=== PATIENT | female | born 1965 | race Hispanic/Latino ===

== ENCOUNTER 2016-09-13 16:09 | Emergency (ER) | payer MEDICARE ==
[2016-09-13 18:28] VITALS: BP 133/89
[2016-09-13] MEDS ORDERED: VALIUM PO ONE (20:29)
[2016-09-13] MEDS ORDERED: TORADOL IM ONE (20:29)
--- NOTE | 2016-09-13 20:31 | Emergency Department Report ---
HPI - General Chief Complaint: Back Pain/Injury Time Seen by Provider: 09/13/16 20:17 - HPI HPI: Physical [id number] female presents today with lower back pain and bilateral calf pain or slipping and falling last night. Patient states that she landed on her butt. Denies head injury or loss of consciousness. Positive for pain worsening today. Positive for history of sciatica. Denies numbness, weakness, paresthesias. Denies bowel or bladder incontinence. Describes her pain as 10 out of 10 constant, throbbing ache that is worse with movement. Tried Tylenol 3 without relief. Denies fever, chills, nausea, vomiting, chest pain, shortness of breath, abdominal pain, urinary symptoms. ED Past Medical Hx - Past Medical History Hx Psychiatric Treatment: Yes (BIPOLAR, ANXIETY, ADHD) Additional medical history: Degenerative disc disease lumbar spine, sciatica, ' bulging discs' - Surgical History Hx Appendectomy: Yes Additional Surgical History: x3 - Social History Smoking Status: Never Smoker Substance Use Type: None - Medications Home Medications: Home Medications Medication Instructions Recorded Confirmed Last Taken Type Dextroamphetamine/Amphetamine 20 mg PO BID #60 tab 12/20/14 Unknown Rx [Adderall] Diazepam 10 mg PO BID #60 tablet 12/20/14 Unknown Rx buPROPion XL [Wellbutrin XL] 150 mg PO QAM 12/20/14 12/20/14 12/17/14 History risperiDONE [RisperiDONE] 3 mg PO BID #60 tablet 12/20/14 Unknown Rx Carisoprodol [Soma] 350 mg PO Q8H PRN #21 tablet 06/18/15 Unknown Rx oxyCODONE /ACETAMINOPHEN [Percocet 1 tab PO Q6HR PRN #20 tablet 06/18/15 Unknown Rx 5/325] Cyclobenzaprine [Flexeril] 10 mg PO TID PRN #15 tablet 01/02/16 Unknown Rx Ivette Osei [Nabeel Osei] 75 mg PO BID #20 tablet 01/02/16 Unknown Rx Diclofenac Sodium 75 mg PO BID #20 tablet. 05/06/16 Unknown Rx HYDROcodone/APAP 10-325 [[place] 1 each PO Q6HR PRN #10 tablet 05/06/16 Unknown Rx 10/325] Permethrin [Elimite] 60 gm TP ONCE #1 tube 05/06/16 Unknown Rx Cyclobenzaprine [Flexeril] 10 mg PO TID PRN #15 tablet 05/24/16 Unknown Rx Diclofenac Sodium [Diclofenac 100 mg PO BID #20 tab.er.24h 05/24/16 Unknown Rx Sodium ER] Acetaminophen/Codeine 1 tab PO Q6H PRN #14 tab 08/02/16 Unknown Rx [Acetaminophen-Codeine #3 TAB] methOCARBAMOL [Robaxin TAB] 500 mg PO Q6H PRN #14 tablet 08/02/16 Unknown Rx Acetaminophen/Codeine 1 tab PO Q6H PRN #10 tab 09/13/16 Unknown Rx [Acetaminophen-Codeine #3 TAB] ED Review of Systems ROS: Stated complaint: FELL/BACK PAIN Other details as noted in HPI Constitutional: denies: chills, fever, malaise Eyes: denies: eye pain ENT: denies: ear pain, throat pain, congestion Respiratory: denies: cough, shortness of breath, wheezing Cardiovascular: denies: chest pain, palpitations Endocrine: no symptoms reported Gastrointestinal: denies: abdominal pain, nausea, vomiting Genitourinary: denies: urgency, dysuria, frequency, hematuria, discharge Musculoskeletal: back pain Neurological: denies: headache, weakness, numbness, paresthesias Physical Exam - Physical Exam Vital Signs: Vital Signs 09/13/16 18:24 Temperature 97.8 F Pulse Rate 91 H Respiratory 19 Rate Blood Pressure 133/89 O2 Sat by Pulse 100 Oximetry Physical Exam: GENERAL: The patient is well-developed and well-nourished. Patient is in NAD. HEAD: Normocephalic. Atraumatic. CHEST/LUNGS: Clear to auscultation throughout. HEART/CARDIOVASCULAR: Regular rate and rhythm. No murmurs, rubs or gallops. ABDOMEN: Abdomen is soft, nontender. Bowel sounds normoactive. No guarding or rebound tenderness. EXTREMITIES: Full range of motion. Peripheral pulses intact. Capillary refill less than 2 seconds. No calf tenderness to palpation over edema noted. BACK: Full ROM. No midline or paraspinal tenderness to palpation. Negative for tenderness to palpation of sciatic notch bilaterally. Negative straight leg raise bilaterally. NEURO: Alert and oriented x 3. Normal gait. ED Course Vital Signs 09/13/16 18:24 Temperature 97.8 F Pulse Rate 91 H Respiratory 19 Rate Blood Pressure 133/89 O2 Sat by Pulse 100 Oximetry ED Medical Decision Making - Lab Data Vital Signs 09/13/16 09/13/16 18:24 21:42 Temperature 97.8 F Pulse Rate 91 H Respiratory 19 18 Rate Blood Pressure 133/89 O2 Sat by Pulse 100 Oximetry - Medical Decision Making 51-year-old female presents today with acute onset of chronic lower back pain post fall. The patient was given Toradol and reported some symptomatic relief. Patient is requesting Percocets, explained to patient that I am unable to prescribe her narcotics for chronic pain and she needs to follow up with pain management. The patient expressed understanding. Patient denies Toradol, Flexeril and tramadol to go home on. Patient is in no acute distress at this time. She will be discharged home and is encouraged to follow up with a primary care provider. She will be sent home on Tylenol 3 and is encouraged to return to the emergency room for any worsening symptoms. Critical care attestation.: If time is entered above; I have spent that time in minutes in the direct care of this critically ill patient, excluding procedure time. ED Disposition Clinical Impression: Low back pain Qualifiers: Chronicity: chronic Back pain laterality: bilateral Sciatica presence: without sciatica Qualified Code(s): M54.5 - Low back pain; G89.29 - Other chronic pain Disposition: DISCHARGED TO HOME OR SELFCARE Is pt being admited?: No Does the pt Need Aspirin: No Condition: Stable Instructions: Chronic Back Pain (ED) Additional Instructions: Follow-up with primary care provider. Return to the emergency department if symptoms worsen. Prescriptions: Acetaminophen/Codeine [Acetaminophen-Codeine #3 TAB] 1 tab PO Q6H PRN #10 tab PRN Reason: Pain Referrals: DELIA PAGAN JR, MD [Primary Care Provider] - 3-5 Days [facility] [Provider Group] - 3-5 Days Forms: Work/School Release Form Time of Disposition: 22:06
== END 2016-09-13 22:48 | disposition home or self-care (01) ==
LOC: ED 16:09
DX: M54.5 Low back pain (principal); G89.29 Other chronic pain; F20.9 Schizophrenia, unspecified; Z90.49 Acquired absence of other specified parts of digestive tract
CPT/HCPCS: 96372; 99282; J1885

== ENCOUNTER 2018-12-26 10:02 | Emergency (ER) | payer MEDICARE ==
--- NOTE | 2018-12-26 10:50 | Emergency Department Report ---
ED Psych HPI - General Chief Complaint: Psych Stated Complaint: FRACTURED PELVIC/DEPRESSION/ANXIETY Time Seen by Provider: 12/26/18 10:27 Source: patient Mode of arrival: Ambulatory - History of Present Illness Initial Comments: 53-year-old female with history of ADHD, anxiety, bipolar disorder presents to ED for anxiety. Patient states she stopped taking her anxiety medication and ADHD medication approximately one month ago because her family said that she was taken to much medication. Patient has prescription for her anxiety and ADHD medication with her, however has not gotten it filled. The patient presents to the ED because she states she is anxious and depressed. MD Complaint: feels depressed, other (anxiety) Associated Psychiatric Symptoms: depression History of same: Yes Quality: constant Improves With: medication Worsens With: none Context: not taking psychiatric Associated Symptoms: denies other symptoms Treatments Prior to Arrival: none - Related Data Home Medications Medication Instructions Recorded Confirmed Last Taken ALPRAZolam [Xanax TAB] 2 mg PO TID 12/26/18 12/26/18 Unknown Quetiapine Fumarate [SEROquel] 300 mg PO QHS 12/26/18 12/26/18 Unknown buPROPion [Wellbutrin] 200 mg PO DAILY 12/26/18 12/26/18 Unknown Allergies Allergy/AdvReac Type Severity Reaction Status Date / Time No Known Allergies Allergy Verified 12/26/18 10:04 ED Review of Systems ROS: Stated complaint: FRACTURED PELVIC/DEPRESSION/ANXIETY Other details as noted in HPI Comment: All other systems reviewed and negative Psychiatric: anxiety, depression ED Past Medical Hx - Past Medical History Hx Psychiatric Treatment: Yes (BIPOLAR, ANXIETY, ADHD) Additional medical history: Degenerative disc disease lumbar spine, sciatica, 'bulging discs' - Surgical History Hx Appendectomy: Yes Additional Surgical History: x3 - Social History Smoking Status: Never Smoker Substance Use Type: None - Medications Home Medications: Home Medications Medication Instructions Recorded Confirmed Last Taken Type ALPRAZolam [Xanax TAB] 2 mg PO TID 12/26/18 12/26/18 Unknown History Quetiapine Fumarate [SEROquel] 300 mg PO QHS 12/26/18 12/26/18 Unknown History buPROPion [Wellbutrin] 200 mg PO DAILY 12/26/18 12/26/18 Unknown History ED Physical Exam - General Limitations: No Limitations General appearance: alert, in no apparent distress - Head Head exam: Present: atraumatic, normocephalic - Eye Eye exam: Present: normal appearance - ENT ENT exam: Present: mucous membranes moist - Neck Neck exam: Present: normal inspection - Respiratory Respiratory exam: Present: normal lung sounds bilaterally. Absent: respiratory distress - Cardiovascular Cardiovascular Exam: Present: regular rate, normal rhythm - GI/Abdominal GI/Abdominal exam: Absent: distended - Extremities Exam Extremities exam: Present: normal inspection - Neurological Exam Neurological exam: Present: alert, oriented X3 - Psychiatric Psychiatric exam: Present: normal affect, normal mood - Skin Skin exam: Present: warm, dry, intact, normal color ED Course Vital Signs 12/26/18 12/26/18 12/26/18 10:09 13:46 17:23 Temperature 98.5 F 97.6 F Pulse Rate 82 67 Respiratory 16 17 18 Rate Blood Pressure 135/89 Blood Pressure 119/80 [Left] O2 Sat by Pulse 98 97 97 Oximetry - Reevaluation(s) Reevaluation #1: 12/26/18 18:35 Pt accepted to the [facility] unit ED Medical Decision Making - Lab Data Result diagrams: 12/26/18 13:09 12/26/18 13:09 - Medical Decision Making 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 Pt placed on 1013. UTI on UA. Bactrim given. Medically clear for psychiatric evaluation. - Differential Diagnosis anxiety, suicidal ideations Critical care attestation.: If time is entered above; I have spent that time in minutes in the direct care of this critically ill patient, excluding procedure time. ED Disposition Clinical Impression: Suicidal ideation, Medical clearance for psychiatric admission Disposition: [id number] HOSP/PSY UNIT Is pt being admited?: No Condition: Stable Referrals: PRIMARY CARE, [Referring] - 3-5 Days Time of Disposition: 17:49
[2018-12-26 13:29] LABS: Basophils # (Auto) 0.1 K/mm3 (0.0-0.1); Basophils % (Auto) 1.4 % (0.0-1.8); Eosinophils # (Auto) 0.3 K/mm3 (0.0-0.4); Eosinophils % (Auto) 4.3 % (0.0-4.3); Hematocrit 39.4 % (30.3-42.9); Hemoglobin 13.6 gm/dl (10.1-14.3); Lymphocytes # (Auto) 2.4 K/mm3 (1.2-5.4); Lymphocytes % (Auto) 41.1 % (13.4-35.0); Mean Corpuscular HGB Conc 35 % (30-34); Mean Corpuscular Volume 84 fl (79-97); Monocytes # (Auto) 0.4 K/mm3 (0.0-0.8); Monocytes % (Auto) 6.5 % (0.0-7.3); Platelet Count 171 K/mm3 (140-440); Red Blood Count 4.69 M/mm3 (3.65-5.03); Red Cell Distribution Width 14.5 % (13.2-15.2)
--- NOTE | 2018-12-26 13:45 | Consultation ---
History of Present Illness - Reason for Consult Consult date: 12/26/18 Reason for consult: Mental Health EValuation Requesting physician: ALBAN GUILLEN - Chief Complaint Chief complaint: "I want help" - History of Present Psychiatric Illness 53 y.o. white female who presented to the ER for depression. Today the patient is cooperative, but somewhat anxious during the assessment. She stated that she have been isolating herself from family and friends. She stated that she feels hopeless, but don't know why. She rate her depression/anxiety 8/10, with 10 being the worse. She stated that her anxiety is "awful." She was asked several questions about her mental health, she stated, "I need help, that's it." She would not confirm or deny SI's. She stated that she was inpatient at a mental health facility in [facility]. She denies HI's and AVH's. She denies erratic sleep and a poor appetite. She denies recreational drug use and alcohol consumption (etoh). Medications and Allergies Allergies Allergy/AdvReac Type Severity Reaction Status Date / Time No Known Allergies Allergy Verified 12/26/18 10:04 Home Medications Medication Instructions Recorded Confirmed Last Taken Type ALPRAZolam [Xanax TAB] 2 mg PO TID 12/26/18 12/26/18 Unknown History Quetiapine Fumarate [SEROquel] 300 mg PO QHS 12/26/18 12/26/18 Unknown History buPROPion [Wellbutrin] 200 mg PO DAILY 12/26/18 12/26/18 Unknown History Past psychiatric history - Past Medical History Past Medical History: other ('Chronic back Pain") Past Surgical History: Other (Hip replacement surgery) - past Psychiatric treatment and history psychiatric treatment history: inpatient psy services in the past. Denies a fam psy hx. - Social History Social history: lives with family Mental Status Exam - Vital signs Last Vital Signs Temp 98.5 F 12/26/18 10:09 Pulse 82 12/26/18 10:09 Resp 16 12/26/18 10:09 BP 135/89 12/26/18 10:09 Pulse Ox 98 12/26/18 10:09 - Exam Narrative exam: MSE: Appearance: calm Behavior: poor eye contact Speech: regular rate and tone Mood: "depressed" Affect: congruent to mood Thought Process: circumstantial Thought Content: denies HI's and AVH's Motor Activity: ambulatory Cognition: A/O x3 Insight: vague Judgment: poor Results Result Diagrams: 12/26/18 13:09 12/26/18 13:09 Abnormal lab results 12/26/18 Range/Units 13:09 MCHC 35 H (30-34) % Lymph % (Auto) 41.1 H (13.4-35.0) % All other labs normal. Assessment and Plan Assessment and plan: Impression: MDD, Severe Type. Today the patient is cooperative, but somewhat anxious during the assessment. UDS is negative. The patient recently had hip surgery. UDS/UA pending. DDx: R/O Bipolar DO Recommendation/Plan: Continue 1013 and start home medication Wellbutrin 150 mg PO. Discussed possible suicidality/medication induced amie with the patient, she verbalized understanding. Dispo: The patient was referred to inpatient psy services. Staffed with Dr Carlo Joshi.
[2018-12-26 13:55] LABS: Alanine Aminotransferase 10 units/L (7-56); Albumin 4.2 g/dL (3.9-5); BUN/Creatinine Ratio 33; Blood Urea Nitrogen 20 mg/dL (7-17); Calcium 8.9 mg/dL (8.4-10.2); Hemolysis Index 10
[2018-12-26 14:30] LABS: Bilirubin,Urine NEG (Negative); Blood,Urine SM (Negative); Calcium Oxalate Crystals,Urine 3+; Color,Urine Yellow (Yellow); Mucus,Urine FEW /HPF; Protein,Urine <15 mg/dL mg/dL (Negative); Urobilinogen,Urine < 2.0 mg/dL (<2.0)
[2018-12-26 14:35] LABS: Amphetamine Screen,Urine PRESUMPTIVE NEGATIVE; Benzodiazepines Screen,Urine PRESUMPTIVE NEGATIVE; Cannabinoid Screen,Urine PRESUMPTIVE NEGATIVE; Cocaine Screen,Urine PRESUMPTIVE NEGATIVE; Methadone Screen,Urine PRESUMPTIVE NEGATIVE; Opiate Screen,Urine PRESUMPTIVE NEGATIVE
[2018-12-26] MEDS ORDERED: BACTRIM DS PO ONE (14:48)
[2018-12-26 17:23] VITALS: BP 119/80
== END 2018-12-26 18:03 ==
LOC: ED 10:02 → EEVIPCON 10:02 → ED 18:03
DX: F32.9 Major depressive disorder, single episode, unspecified (principal); F90.9 Attention-deficit hyperactivity disorder, unspecified type; M51.36 Other intervertebral disc degeneration, lumbar region; Z90.49 Acquired absence of other specified parts of digestive tract
CPT/HCPCS: 36415; 80053; 80307; 81001; 85025; 99284; G0480; 80320

== ENCOUNTER 2018-12-26 16:49 | Inpatient (IN) | payer MEDICARE ==
[2018-12-26] MEDS ORDERED: VISTARIL PO ONE (19:11)
[2018-12-26] MEDS ORDERED: VISTARIL PO PRN (20:03)
[2018-12-26] MEDS ORDERED: DESYREL PO PRN (20:04)
[2018-12-26] MEDS ORDERED: HALDOL IM PRN (20:06)
[2018-12-26] MEDS ORDERED: HALDOL PO PRN (20:06)
[2018-12-26] MEDS ORDERED: ATIVAN IM PRN (20:07)
[2018-12-26] MEDS ORDERED: ATIVAN PO PRN (20:07)
[2018-12-26 21:40] LABS: Chol/HDL Ratio 6.55 %; HDL Cholesterol 47 mg/dL (40-59); LDL Cholesterol,Direct TNR mg/dL (50-130)
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
--- NOTE | 2018-12-27 12:32 | Consultation ---
History of Present Illness - Reason for Consult Consult date: 12/27/18 UTI, medical management Requesting physician: GOLDEN LEHMAN - History of Present Illness patient is 53-year-old with anxiety disorder bipolar disorder. She was seen in emergency department with depression, UTI started on antibiotics. She has been admitted to [facility]. The hospitalist been consulted for management of urinary tract infection and medical management. She also complains of pain left shoulder. She denies chest pain or shortness of breath. Past History Past Medical History: hepatitis, other (Anxiety, bipolar) Past Surgical History: appendectomy, Social history: , smoking (occasionally), full code, other (Alcohol occasionally) Family history: no significant family history Medications and Allergies Allergies Allergy/AdvReac Type Severity Reaction Status Date / Time No Known Allergies Allergy Verified 12/26/18 10:04 Home Medications Medication Instructions Recorded Confirmed Last Taken Type ARIPiprazole [Abilify TAB] 20 mg PO QDAY 14 Days #28 tablet 01/01/19 Unknown Rx DULoxetine [Cymbalta] 60 mg PO QDAY 14 Days capsule 01/01/19 Unknown Rx Gabapentin [Neurontin] 300 mg PO TID 14 Days capsule 01/01/19 Unknown Rx Pravastatin [Pravachol] 40 mg PO QHS 14 Days tablet 01/01/19 Unknown Rx busPIRone [Buspar] 15 mg PO TID 14 Days tablet 01/01/19 Unknown Rx clonazePAM [KlonoPIN] 0.25 mg PO QHS 10 Days tablet 01/01/19 Unknown Rx clonazePAM [KlonoPIN] 0.25 mg PO QHS 14 Days #7 tablet 01/01/19 Unknown Rx hydrOXYzine PAMOATE [Vistaril] 50 mg PO Q6H PRN #60 capsule 01/01/19 Unknown Rx traZODone [Desyrel] 75 mg PO QHS PRN #30 tablet 01/01/19 Unknown Rx Active Meds: Active Medications Aripiprazole (Abilify) 20 mg PO QDAY SOUMYA Buspirone HCl (Buspar) 15 mg PO TID SOUMYA Duloxetine HCl (Cymbalta) 30 mg PO QDAY SOUMYA Haloperidol (Haldol) 5 mg PO Q6H PRN PRN Reason: Agitation Haloperidol Lactate (Haldol) 5 mg IM Q6H PRN PRN Reason: Agitation Hydroxyzine Pamoate (Vistaril) 50 mg PO Q6H PRN PRN Reason: Anxiety Levofloxacin (Levaquin) 500 mg PO Q24HR SOUMYA Stop: 01/01/19 12:59 Lorazepam (Ativan) 2 mg PO Q4H PRN PRN Reason: Agitation Lorazepam (Ativan) 2 mg IM Q4H PRN PRN Reason: Agitation Trazodone HCl (Desyrel) 50 mg PO QHS PRN PRN Reason: Insomnia Last Admin: 12/26/18 23:49 Dose: 50 mg Documented by: Review of Systems All systems: negative (No fever, no chest pain, no cough.All other systems reviewed and are negative) Exam - Physical Exam Narrative exam: Gen: Not in acute distress, sitting up in bed, obese HEENT: Normocephalic, atraumatic Neck: supple, no JVD Heart: S1 and S2 reg, no murmurs, rubs or gallop Lungs: Clear, no crackles, no wheeze Abd: soft, non tender, non distended, normal BS Ext: No edema, no clubbing, no cyanosis, Neuro: Awake,alert, oriented x 3, moves all ext, non focal Psych:Normal mood - Constitutional Vitals: Temp Pulse Resp BP Pulse Ox 98.6 F 66 18 113/73 99 12/26/18 19:46 12/26/18 18:16 12/26/18 19:46 12/26/18 19:46 12/26/18 18:16 Results - Labs CBC & Chem 7: 12/28/18 08:34 Labs: Abnormal lab results 12/26/18 Range/Units 13:09 Triglycerides 406 H (2-149) mg/dL Cholesterol 308 H (50-199) mg/dL Assessment and Plan Anxiety, Bipolar Depression Patient admitted to [facility] psych is primary attemnding Pain left shoulder Obtain X ray of left shoulder likely arthritis UTI Urine culture Give Levaquin for 5 days Full code status
[2018-12-27] MEDS: ABILIFY PO SCH (13:45)
[2018-12-27] MEDS: CYMBALTA PO SCH (13:48)
[2018-12-27] MEDS: LEVAQUIN PO SCH (13:55)
[2018-12-27] MEDS: BUSPAR PO SCH ×2 (13:56→19:35)
[2018-12-27] MEDS: DESYREL PO PRN (22:03)
--- NOTE | 2018-12-27 23:38 | XRay Report ---
PROCEDURE: XR SHOULDER 2+V LT TECHNIQUE: Left shoulder radiographs, internal and external rotation, Y view views. HISTORY: pain left shoulder COMPARISONS: None . FINDINGS: Fracture (s) and/or Dislocation(s): None . Joint space(s): Mild narrowing of joint spaces . Soft tissues: Normal . Bone mineralization: Normal . Foreign bodies: None . IMPRESSION: No evidence of an acute fracture. Mild arthritis . This document is electronically signed by Sue Perez DO., Dec 27 2018 11:36:49 PM ET
[2018-12-28] MEDS: BUSPAR PO SCH ×3 (08:07→21:35)
[2018-12-28] MEDS: LEVAQUIN PO SCH (10:37)
[2018-12-28] MEDS: ABILIFY PO SCH (10:38)
[2018-12-28] MEDS: CYMBALTA PO SCH (10:39)
--- NOTE | 2018-12-28 13:34 | Progress Note ---
Subjective Date of service: 12/28/18 Principal diagnosis: Bipolar disorder MRE Depression Subjective Comment: Patient seen today. She continues to be very depressed and anxious. Endorses suicidal thoughts with plans to overdose. She reports being nervous all the time. Worried about everything and anything. She wants something stronger than Buspar. States that she was on Xanax for many years. She denies hallucinations/Paranoia. She is compliant with meds and denies side effects. Sleep and dietary intake are adequate. Objective - Criteria for Continued Treatment Criteria for Continued Treatment: Improving Level of Functioning, Reducing Isolative Behaviors, Understanding Diagnosis and need for Medication, Improving Treatment / Medication Compliance, Stablizing Level of Functioning, Improving Emotional/Socia - Mental Status Mental Status: Oriented x 3 - Objective Observation Participation Level: Moderate Assessment and Plan - Patient Problems (1) Alcohol use disorder, mild, in early remission Current Visit: Yes Status: Acute (2) Bipolar 1 disorder, depressed Current Visit: Yes Status: Acute Plan to address problem: Continue inpatient psychiatric treatment for medication adjustment and close monitoring The patient's behavior, mood, sleep and appetite will be closely monitored. Patient will be enrolled in individual and group therapeutic sessions and encouraged to attend. Patient will be provided with a safe and structured environment. Patient's physical health needs will be addressed by the Hospitalist. Social Assessment will be completed and the Client Support Associate will work with patient and family to ensure a suitable and safe disposition Medication adjustment will be made as clinically indicated. Will increase Cymbalta from 30mg to 60mg qd for depression Discontinue Lorazepam and start Clonazepam 0.5mg bid with a plan to quickly taper Clonazepam off withing the next 5 days to avoid bezodiazapine withdrawal ELOS 5 days (3) Severe opioid use disorder, in sustained remission Current Visit: Yes Status: Resolved
[2018-12-28] MEDS: DESYREL PO PRN (21:36)
[2018-12-29] MEDS: CYMBALTA PO SCH (09:49)
[2018-12-29] MEDS: BUSPAR PO SCH ×4 (09:50→20:54)
[2018-12-29] MEDS: LEVAQUIN PO SCH (09:51)
[2018-12-29] MEDS: ABILIFY PO SCH (09:52)
--- NOTE | 2018-12-29 12:09 | Progress Note ---
Subjective Date of service: 12/29/18 Principal diagnosis: Bipolar disorder MRE Depression Subjective Comment: Patient states that she does not feel safe being discharged form the hospital. She continues to be very depressed and anxious. Endorses suicidal thoughts with plans to overdose. She denies hallucinations/Paranoia. She is compliant with meds and denies side effects. Sleep and dietary intake are adequate. She was started on Clonazepam yesterday with a plan to taper it off in the next 3 days. Objective - Criteria for Continued Treatment Criteria for Continued Treatment: Improving Level of Functioning, Stablizing L evel of Functioning, Improving Emotional/Socia, Decreasing Frequency of Hospitalization - Mental Status Mental Status: Oriented x 3 - Objective Observation Participation Level: Moderate Assessment and Plan - Patient Problems (1) Alcohol use disorder, mild, in early remission Current Visit: Yes Status: Acute (2) Bipolar 1 disorder, depressed Current Visit: Yes Status: Acute Plan to address problem: Continue inpatient psychiatric treatment for medication adjustment and close monitoring The patient's behavior, mood, sleep and appetite will be closely monitored. Patient will be enrolled in individual and group therapeutic sessions and encouraged to attend. Patient will be provided with a safe and structured environment. Patient's physical health needs will be addressed by the Hospitalist. Social Assessment will be completed and the Co[place] Winder will work with patient and family to ensure a suitable and safe disposition Medication adjustment will be made as clinically indicated. Continue Cymbalta 60mg qd for depression Continue Clonazepam 0.5mg bid with a plan to quickly taper Clonazepam off withing the next 3 days to avoid bezodiazapine withdrawal ELOS 3 days (3) Severe opioid use disorder, in sustained remission Current Visit: Yes Status: Resolved
[2018-12-29] MEDS: DESYREL PO PRN (21:16)
[2018-12-30] MEDS: BUSPAR PO SCH ×3 (09:27→20:09)
[2018-12-30] MEDS: ABILIFY PO SCH (09:28)
[2018-12-30] MEDS: CYMBALTA PO SCH (09:30)
[2018-12-30] MEDS: LEVAQUIN PO SCH (09:32)
--- NOTE | 2018-12-30 18:51 | Progress Note ---
Subjective Date of service: 12/30/18 Principal diagnosis: Bipolar disorder MRE Depression Subjective Comment: Patient reports feeling anxious, wants a stronger medication than Clonazepam or increased dose of the Clonazepam. She denies suicidal thoughts, plans or intent. She denies hallucinations/Paranoia. She is compliant with meds and denies side effects. Sleep and dietary intake are adequate Objective - Criteria for Continued Treatment Criteria for Continued Treatment: Improving Level of Functioning, Stablizing Level of Functioning, Improving Emotional/Socia, Decreasing Frequency of Hospitalization - Mental Status Mental Status: Oriented x 3 - Objective Observation Participation Level: Full Assessment and Plan - Patient Problems (1) Alcohol use disorder, mild, in early remission Current Visit: Yes Status: Acute (2) Bipolar 1 disorder, depressed Current Visit: Yes Status: Acute Plan to address problem: Continue inpatient psychiatric treatment for medication adjustment and close monitoring The patient's behavior, mood, sleep and appetite will be closely monitored. Patient will be enrolled in individual and group therapeutic sessions and encouraged to attend. Patient will be provided with a safe and structured environment. Patient's physical health needs will be addressed by the Hospitalist. Social Assessment will be completed and the Patrol Man will work with patient and family to ensure a suitable and safe disposition Medication adjustment will be made as clinically indicated. Continue Cymbalta 60mg qd for depression Continue Clonazepam 0.5mg bid with a plan to quickly taper Clonazepam off withing the next 3 days to avoid bezodiazapine withdrawal ELOS 2 days (3) Severe opioid use disorder, in sustained remission Current Visit: Yes Status: Resolved
[2018-12-30] MEDS: NEURONTIN PO SCH (20:10)
[2018-12-30] MEDS: DESYREL PO PRN (21:35)
[2018-12-31] MEDS: CYMBALTA PO SCH (09:51)
[2018-12-31] MEDS: LEVAQUIN PO SCH (09:51)
[2018-12-31] MEDS: BUSPAR PO SCH ×3 (09:51→20:23)
[2018-12-31] MEDS: NEURONTIN PO SCH ×3 (09:53→20:22)
[2018-12-31] MEDS: ABILIFY PO SCH (09:53)
[2018-12-31] MEDS: IBUPROFEN PO PRN (17:08)
[2018-12-31] MEDS: DESYREL PO PRN (21:21)
[2019-01-01 06:38] VITALS: BP 103/69
--- NOTE | 2019-01-01 07:12 | Progress Note ---
Subjective Date of service: 12/31/18 Principal diagnosis: Bipolar disorder MRE Depression Subjective Comment: Patient is improving. Her mood is good. She had a good visitation with her family. She denies suicidal thoughts, plans or intent. She denies hallucinations/Paranoia. She is compliant with meds and denies side effects. Sleep and dietary intake are adequate Objective - Criteria for Continued Treatment Criteria for Continued Treatment: Improving Level of Functioning, Stablizing Level of Functioning, Improving Emotional/Socia - Mental Status Mental Status: Oriented x 3 - Objective Observation Participation Level: Full Assessment and Plan - Patient Problems (1) Alcohol use disorder, mild, in early remission Current Visit: Yes Status: Acute (2) Bipolar 1 disorder, depressed Current Visit: Yes Status: Acute Plan to address problem: Continue inpatient psychiatric treatment for medication adjustment and close monitoring The patient's behavior, mood, sleep and appetite will be closely monitored. Patient will be enrolled in individual and group therapeutic sessions and encouraged to attend. Patient will be provided with a safe and structured environment. Patient's physical health needs will be addressed by the Hospitalist. Social Assessment will be completed and the [place] Se[employer] will work with patient and family to ensure a suitable and safe disposition Medication adjustment will be made as clinically indicated. Continue Cymbalta 60mg qd for depression Continue Clonazepam 0.5mg qhs with a plan to quickly taper Clonazepam off withing the next 3 days to avoid bezodiazapine withdrawal ELOS 1 days (3) Severe opioid use disorder, in sustained remission Current Visit: Yes Status: Resolved
[2019-01-01] MEDS: BUSPAR PO SCH (08:48)
[2019-01-01] MEDS: IBUPROFEN PO PRN (08:50)
[2019-01-01] MEDS: NEURONTIN PO SCH (08:52)
[2019-01-01] MEDS: LEVAQUIN PO SCH (09:30)
[2019-01-01] MEDS: CYMBALTA PO SCH (09:30)
[2019-01-01] MEDS: ABILIFY PO SCH (09:30)
--- NOTE | 2019-01-01 10:58 | Discharge Summary ---
Providers - Providers Date of Admission: 12/26/18 17:04 Date of discharge: 01/01/19 Attending physician: GOLDEN LEHMAN MD 12/26/18 20:12 Consult to Physician [CONS] Routine Comment: Consulting Provider: TONIA RAMÍREZ Physician Instructions: Reason For Exam: inpatient admission 12/28/18 14:00 Physical Therapy Evaluation and Treat [CONS] Routine Comment: History of Chronic back pain Reason For Exam: Patient reports fracture of Pelvis 6 weeks ago. Mode of Transport?: Wheelchair Primary care physician: DELIA PAGAN Hospitalization Reason for admission: Depression, Xanax & Adderral abuse and suicidal thoughts Condition: Good Hospital course: The patient was provided inpatient psychiatric treatment with safe and supportive environment, group therapy, individual counseling, psychiatric medication, medication adjustment, adverse effect monitor, medical evaluation, medical treatment, social service assessment, family/social support meeting, placement assessment and psycho-education. The patients mood, anxiety, thoughts, stress management skill, cognition, impulse/anger control, motivation, understanding of disease, compliance to treatment and appreciation on family/social support are improved and stabilized. At the time of discharge, the patient had no suicidal ideas, no homicidal ideas, no aggressive thoughts, no endangering behavior and no debilitating adverse effects. The patient agreed on the treatment plan, understood the risk, benefit, alternative treatment, potential consequence of no treatment, and gave informed consent. The patient was advised to be compliant with medications, not to use drugs and not to drink alcohol. The patient understands that if suicidal ideas, homicidal ideas, or any endangering thoughts arise, the patient should immediately seek for emergent assistance including but not limited to crisis hot line and emergency room. Follow up with out-patient Psychiatrist and PCP within 14 - 21 days of discharge. Disposition: -01 TO HOME OR SELFCARE Allergies/Adverse Reactions: Allergies No Known Allergies Allergy (Verified 12/26/18 10:04) Vital Signs: Last Vital Signs Temp 98.4 F 01/01/19 06:24 Pulse 66 01/01/19 06:24 Resp 18 01/01/19 06:24 BP 103/69 01/01/19 06:24 Pulse Ox 93 01/01/19 06:24 Last Lab: Laboratory Last Values 0.7 mg/dL (0.7-1.2) 12/28/18 08:34 Estimated GFR > 60 ml/min 12/28/18 08:34 5.2 % (4-6) 12/26/18 13:09 Triglycerides 406 mg/dL (2-149) H 12/26/18 13:09 Cholesterol 308 mg/dL (50-199) H 12/26/18 13:09 TNR 12/26/18 13:09 47 mg/dL (40-59) 12/26/18 13:09 6.55 % 12/26/18 13:09 - Discharge Diagnoses (1) Alcohol use disorder, mild, in early remission Status: Acute (2) Bipolar 1 disorder, depressed Status: Acute (3) Severe opioid use disorder, in sustained remission Status: Resolved Core Measure Documentation - Palliative Care Palliative Care/ Comfort Measures: Not Applicable - Core Measures Any of the following diagnoses?: none - VTE Discharge Requirements Deep Vein Thrombosis/Pulmonary Embolism Present on Admission: No Has pt received <5 days of overlap therapy or INR<2.0: No Anticoagulant overlap therapy prescribed at discharge: No Contraindication No Overlap Therapy order at DC: Not Indicated Exam - Constitutional Vitals: Temp Pulse Resp BP Pulse Ox 98.4 F 66 18 103/69 93 01/01/19 06:24 01/01/19 06:24 01/01/19 06:24 01/01/19 06:24 01/01/19 06:24 General appearance: Present: no acute distress, well-nourished - EENT Eyes: Present: PERRL, EOM intact ENT: hearing intact, clear oral mucosa, dentition normal - Neck Neck: Present: supple, normal ROM - Respiratory Respiratory effort: normal Plan Activity: advance as tolerated Weight Bearing Status: Weight Bear as Tolerated Diet: regular Follow up with: DELIA PAGAN JR, MD [Primary Care Provider] - 7 Days Prescriptions: traZODone [Desyrel] 75 mg PO QHS PRN #30 tablet PRN Reason: Insomnia clonazePAM [KlonoPIN] 0.25 mg PO QHS 14 Days #7 tablet Pravastatin [Pravachol] 40 mg PO QHS 14 Days tablet ARIPiprazole [Abilify TAB] 20 mg PO QDAY 14 Days #28 tablet busPIRone [Buspar] 15 mg PO TID 14 Days tablet DULoxetine [Cymbalta] 60 mg PO QDAY 14 Days capsule Gabapentin [Neurontin] 300 mg PO TID 14 Days capsule hydrOXYzine PAMOATE [Vistaril] 50 mg PO Q6H PRN #60 capsule PRN Reason: Anxiety
[2019-01-01] MEDS ORDERED: PRAVACHOL PO SCH (22:00)
== END 2019-01-01 12:15 | disposition home or self-care (01) | DRG 885 ==
LOC: 3A 16:49 → UNDOADMIN 16:49 → 5A 17:04
PROVIDERS: ADMIT Psychiatry & Neurology Psychiatry; ATTEND Psychiatry & Neurology Psychiatry
DX: F31.5 Bipolar disorder, current episode depressed, severe, with psychotic features (principal); F10.988 Alcohol use, unspecified with other alcohol-induced disorder; N39.0 Urinary tract infection, site not specified; F41.9 Anxiety disorder, unspecified; F17.210 Nicotine dependence, cigarettes, uncomplicated; Y90.9 Presence of alcohol in blood, level not specified; F11.99 Opioid use, unspecified with unspecified opioid-induced disorder; F90.9 Attention-deficit hyperactivity disorder, unspecified type; G89.29 Other chronic pain; Z90.49 Acquired absence of other specified parts of digestive tract; Z86.19 Personal history of other infectious and parasitic diseases; Z81.8 Family history of other mental and behavioral disorders
CPT/HCPCS: 36415; 80061; 82565; 83036; 87086; G0378; A9270-GY; Q0177

== ENCOUNTER 2020-04-17 11:17 | Emergency (ER) | payer MEDICARE ==
[2020-04-17 11:30] VITALS: BP 154/91
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
--- NOTE | 2020-04-17 13:13 | XRay Report ---
Cervical spine 4 views INDICATION: Neck pain following injury IMPRESSION: No fracture or subluxation of the cervical spine appreciated. Mild discogenic and facet a rthropathy at C5-C6. Signer Name: Salazar Hilliard MD Signed: 04/17/2020 1:09 PM Workstation Name: [id number]
== END 2020-04-17 13:43 | disposition home or self-care (01) ==
LOC: ED 11:17
DX: S16.1XXA Strain of muscle, fascia and tendon at neck level, initial encounter (principal); S39.012A Strain of muscle, fascia and tendon of lower back, initial encounter; F32.9 Major depressive disorder, single episode, unspecified; F41.9 Anxiety disorder, unspecified; Z98.890 Other specified postprocedural states; Z79.899 Other long term (current) drug therapy; V59.59XA Passenger in pick-up truck or van injured in collision with other motor vehicles in traffic accident, initial encounter; Y93.89 Activity, other specified; Y92.410 Unspecified street and highway as the place of occurrence of the external cause; Y99.8 Other external cause status
CPT/HCPCS: 72040; 72100

== ENCOUNTER 2020-05-21 10:35 | Emergency (ER) | payer MEDICARE ==
[2020-05-21] MEDS ORDERED: HYDROcodone/ACETAMINOPHEN 5-325 MG TAB PO ONE (12:40)
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
== END 2020-05-21 13:55 | disposition home or self-care (01) ==
LOC: ED 10:35
DX: S92.512A Displaced fracture of proximal phalanx of left lesser toe(s), initial encounter for closed fracture (principal); F31.9 Bipolar disorder, unspecified; F41.9 Anxiety disorder, unspecified; Z98.890 Other specified postprocedural states; Z79.899 Other long term (current) drug therapy; W22.8XXA Striking against or struck by other objects, initial encounter; Y93.89 Activity, other specified; Y92.89 Other specified places as the place of occurrence of the external cause; Y99.8 Other external cause status